=== PATIENT | male | born 1985 | race African-American/Black ===

== ENCOUNTER 2019-01-28 13:28 | Emergency (ER) | payer OTHER ==
[2019-01-28 13:39] VITALS: BP 140/78; PULSE 100; TEMP 98; BMI 37.7
--- NOTE | 2019-01-28 13:39 | PDOC ---
Rapid Medical Evaluation Time Seen by Provider: 01/28/19 13:35 Medical Evaluation: 01/28/19 13:38 I have performed a brief in-person evaluation of this patient. The patient presents with a chief complaint of: calf injury Pertinent physical exam findings:stable and in NAD, non-focal I have ordered the following: n/a The patient will proceed to the ED for further evaluation.
[2019-01-28] MEDS ORDERED: IBUPROFEN 400 MG TABLET (FP) PO ONE (14:23)
[2019-01-28] MEDS ORDERED: IBUPROFEN 600 MG TABLET (FP) PO ONE (14:24)
--- NOTE | 2019-01-28 14:26 | PDOC ---
History of Present Illness - General Chief Complaint: Injury Stated Complaint: RT LEG PAIN Time Seen by Provider: 01/28/19 13:35 History Source: Patient Exam Limitations: No Limitations - History of Present Illness Initial Comments: 01/28/19 14:24 33y M no pmhx presents with R calf pain while playing basketball, he was in severe pain, was unable to finish his game. He had a persistent soreness in his right calf for the rest of the day. Pain improved however as he was so sore he came for evaluation. The pain is worse when he is walking, it is no associated numbness, tingling, fevers, chills, shortness of breath, chest pain. He is not taken any Motrin or Tylenol or other medications for his pain. He has not noticed any swelling Constitutional - no reported Fever, Chills, Respiratory: no reported cough, sob, hemoptysis Cardiac: no reported chest pain, leg swelling Abd/GI: no reported, nausea, vomiting, Musculskelatal - + r calf pain no reported back pain, joint swelling skin - no reported bruising, erythema, rash neurological: no reported numbness, focal weakness, tingling, ataxia, hematologic: no reported easy bruising, easy bleeding GENERAL: The patient is awake, alert, and fully oriented, Nontoxic - in no acute distress. EXTREMITIES: Normal range of motion, no edema. Mild tenderness in the mid R gastrocnemius, no swelling, edema, ecchymosis noted. negative Chapman sign dx: calf strain motrin/tylenol, rest avoid running/jumping pmd fu I discussed the physical exam findings, ancillary test results and final diagnoses with the patient. I answered all of the patient's questions. The patient was satisfied with the care received and felt comfortable with the discharge plan and treatment plan. The patient will call their primary care physician within 24 hours to arrange follow-up and will return to the Emergency Department with any new, persistent or worsening symptoms. Past History - Past Medical History Allergies/Adverse Reactions: Allergies Allergy/AdvReac Type Severity Reaction Status Date / Time No Known Allergies Allergy Verified 01/28/19 13:39 - Suicide/Smoking/Psychosocial Hx Smoking History: Current every day smoker Number of Cigarettes Smoked Daily: 5 Information on smoking cessation initiated: No Hx Alcohol Use: No Drug/Substance Use Hx: No *Physical Exam - Vital Signs Last Vital Signs Temp Pulse Resp BP Pulse Ox 98 F 100 H 16 140/78 100 01/28/19 13:36 01/28/19 13:36 01/28/19 13:36 01/28/19 13:36 01/28/19 13:36 *DC/Admit/Observation/Transfer Diagnosis at time of Disposition: Strain of calf muscle Qualifiers: Encounter type: initial encounter Laterality: right Qualified Code(s): S86.811A - Strain of other muscle(s) and tendon(s) at lower leg level, right leg , initial encounter - Discharge Dispostion Disposition: HOME Condition at time of disposition: Improved Decision to Admit order: No - Referrals Referrals: Lon Steen MD [Primary Care Provider] - - Patient Instructions Printed Discharge Instructions: DI for Calf Muscle Strain Additional Instructions: Return to the emergency department immediately with ANY new, persistent or worsening symptoms including worsening pain, swelling, bruising or any other concerns. Take Motrin or Tylenol as needed for pain, avoid any strenuous activities including running and jumping at least for 2 weeks. You MUST call and follow up with your doctor in 4-5 days for further evaluation of your symptoms. Results were discussed with you. Please make sure your doctor reviews the results of your emergency evaluation. Print Language: MONGOLIAN - Post Discharge Activity
== END 2019-01-28 14:31 | disposition home or self-care (01) ==
LOC: JERFT 13:28
DX: S86.111A Strain of other muscle(s) and tendon(s) of posterior muscle group at lower leg level, right leg, initial encounter (principal); X50.9XXA Other and unspecified overexertion or strenuous movements or postures, initial encounter; Y93.67 Activity, basketball; Y92.310 Basketball court as the place of occurrence of the external cause; Y99.8 Other external cause status
CPT/HCPCS: 99281-25